=== PATIENT | female | born 1995 | race Caucasian/White ===

== ENCOUNTER 2016-09-28 13:57 | Emergency (ER) | payer OTHER ==
[2016-09-28 14:12] LABS: HEMOGLOBIN 12.2 gm/dl (12.3-15.3); RED BLOOD COUNT 4.37 M/UL (4.00-5.10); WHITE BLOOD COUNT 10.1 K/UL (4.5-11.0)
[2016-09-28 14:30] LABS: BUN/CREATININE RATIO 21 (0-10)
== END 2016-09-28 17:01 | disposition home or self-care (01) ==
LOC: ER1 13:57
PROVIDERS: Preventive Medicine Occupational Medicine
DX: L05.01 Pilonidal cyst with abscess (principal); Z87.891 Personal history of nicotine dependence
CPT/HCPCS: 36415; 80048; 85025; 86140; 87070; 87205; 96361; 96374; 96375; 99283; J1885; J1956; J2405

== ENCOUNTER 2020-11-23 21:45 | Emergency (ER) | payer OTHER ==
[~2020-11-23 21:45] MED LIST: BENTYL 20MG TAB20 MG PO; MACROBID 100 M100 MG PO
[2020-11-23] MEDS ORDERED: IBUPROFEN600 MG PO (23:39)
[2020-11-23] MEDS ORDERED: BACTROBAN OINT22 GM EXT (23:39)
[2020-11-23] MEDS ORDERED: BACTRIM DS TAB1 EACH PO (23:39)
== END 2020-11-23 23:45 | disposition home or self-care (01) ==
LOC: ER1 21:45
DX: L05.01 Pilonidal cyst with abscess (principal); Z88.8 Allergy status to other drugs, medicaments and biological substances
CPT/HCPCS: 10080; 87070; 87205; 99283

== ENCOUNTER → 2021-11-17 | Outpatient (CLI) | payer OTHER ==
[~2021-11-17] MED LIST changes: +BACTRIM DS TAB1 EACH PO; +BACTROBAN OINT22 GM EXT; +IBUPROFEN600 MG PO
== END ==
LOC: US 10:00
DX: R10.13 Epigastric pain (principal)
CPT/HCPCS: 76705

== ENCOUNTER → 2021-12-09 | Outpatient (CLI) | payer OTHER | LOC: NM 08:57 | DX: R10.13 Epigastric pain (principal) | CPT/HCPCS: 78227; A9537 ==